=== PATIENT | male | born 1950 | race Caucasian/White ===

== ENCOUNTER 2016-04-06 05:16 | Day surgery (SDC) | payer MEDICARE, BC ==
[~2016-04-06] VITALS: Ht 165.1 cm; Wt 87.1 kg
[~2016-04-06 05:16] MED LIST: ASPIR-LOW81 MG PO; ASPIRIN E.C. 8181 MG PO; ATARAX 25MG25 MG/TAB PO; CEPHALEXIN500 M1 PO; COREG 3.123.125 MG/T PO; FLOMAX 0.40.4 MG/CAP PO; LEXAPRO 10MG10 MG PO; LIPITOR 40MG TA40 MG PO; LOVASTATIN10 MG PO; NITROSTAT0.4 MG/TAB SL; PLAVIX 75MG TAB75 MG PO; TYLENOL 325MG325 MG PO; ZESTRIL 10MG10 MG PO
[2016-04-06 06:21] VITALS: BP 127/63; PULSE 60; TEMP 97.6
[2016-04-06 08:55] VITALS: BP 140/75; PULSE 61; TEMP 97.3
[2016-04-06 09:10] VITALS: BP 145/79; PULSE 58
[2016-04-06 09:23] VITALS: TEMP 97.6
[2016-04-06 09:25] VITALS: BP 147/93; PULSE 59
[2016-04-06 09:40] VITALS: BP 150/70; PULSE 59
[2016-04-06] MEDS ORDERED: NORCO 325 MG-7.1 TAB PO (10:27)
== END 2016-04-06 10:40 | disposition home or self-care (01) ==
LOC: SDCO 05:16
DX: S83.242A Other tear of medial meniscus, current injury, left knee, initial encounter (principal); M94.262 Chondromalacia, left knee; I11.0 Hypertensive heart disease with heart failure; I50.9 Heart failure, unspecified; M19.90 Unspecified osteoarthritis, unspecified site; E78.00 Pure hypercholesterolemia, unspecified; I25.2 Old myocardial infarction; M17.11 Unilateral primary osteoarthritis, right knee; Z79.899 Other long term (current) drug therapy; Z79.82 Long term (current) use of aspirin; Z79.02 Long term (current) use of antithrombotics/antiplatelets
CPT/HCPCS: J0171; J0690; J1100; J2370; J2405; J2704; J3010; J7120